=== PATIENT | male | born 1945 | race Hispanic/Latino ===

== ENCOUNTER → 2018-05-24 | Outpatient (CLI) | payer OTHER | END | disposition home or self-care (01) | LOC: SHCH 13:06 | PROVIDERS: ATTEND Internal Medicine Cardiovascular Disease | DX: R01.1 Cardiac murmur, unspecified (principal) | CPT/HCPCS: 93306 ==

== ENCOUNTER → 2018-06-14 | Outpatient (CLI) | payer OTHER ==
[~2018-06-14] MED LIST: IOHEXOL 350 MG/ML 100ML INFUS..BTL IV ONE
== END | disposition home or self-care (01) ==
LOC: RAH 07:15
PROVIDERS: ATTEND Internal Medicine Cardiovascular Disease
DX: N28.1 Cyst of kidney, acquired (principal); K80.20 Calculus of gallbladder without cholecystitis without obstruction; E04.1 Nontoxic single thyroid nodule; N20.0 Calculus of kidney; I70.1 Atherosclerosis of renal artery
CPT/HCPCS: 71275; Q9967

== ENCOUNTER 2018-06-19 13:53 | Emergency (ER) | payer OTHER ==
[2018-06-19 14:41] LABS: BASOPHILS % (AUTO) 0.4 % (0.0-5.0); EOSINOPHILS % (AUTO) 0.3 % (0.0-8.0); HEMATOCRIT 35.6 % (42-54); LYMPHOCYTES % (AUTO) 19.1 % (21.0-51.0); MEAN CORPUSCULAR HEMOGLOBIN 31.7 pg (27.0-33.0); MEAN CORPUSCULAR HGB CONC 34.3 g/dL (32.0-36.0); MEAN CORPUSCULAR VOLUME 92.4 fL (79-99); MONOCYTES % (AUTO) 6.2 % (3.0-13.0); PLATELET COUNT (AUTO) 241 K/uL (130-400); RED BLOOD CELL COUNT(AUTO) 3.85 MIL/uL (4.50-6.20); RED CELL DISTRIBUTION WIDTH 13.7 % (11.0-15.5)
[2018-06-19 15:07] LABS: CREATININE 0.9 mg/dL (0.5-1.5); POTASSIUM 4.9 mmol/L (3.5-5.1)
[2018-06-21] MEDS ORDERED: PANT40TA25 PO (11:45)
[2018-06-21] MEDS ORDERED: PRED5TAB PO (11:45)
[2018-06-21] MEDS ORDERED: METF-446 PO (11:45)
[2018-06-21] MEDS ORDERED: FISH OIL PO (11:45)
[2018-06-21] MEDS ORDERED: CALC-1038 PO (11:45)
[2018-06-21] MEDS ORDERED: ABIRATERONE PO (11:45)
[2018-06-21] MEDS ORDERED: LEUP45SY IM (11:45)
[2018-06-21] MEDS ORDERED: FISH OI PO (11:45)
[2018-06-21] MEDS ORDERED: DONE10TA36 PO (11:45)
[2018-06-21] MEDS ORDERED: DOCU100C33 PO (11:45)
[2018-06-21] MEDS ORDERED: PRAV80TA21 PO (11:45)
[2018-06-21] MEDS ORDERED: SERT50TA12 PO (11:45)
== END 2018-06-19 16:42 | disposition home or self-care (01) ==
LOC: EDH 13:53
DX: K92.1 Melena (principal); I10 Essential (primary) hypertension; E11.9 Type 2 diabetes mellitus without complications; J44.9 Chronic obstructive pulmonary disease, unspecified; E78.5 Hyperlipidemia, unspecified; Z85.46 Personal history of malignant neoplasm of prostate; Z98.890 Other specified postprocedural states
CPT/HCPCS: 36415; 80048; 85025; 86850; 86900; 86901

== ENCOUNTER 2018-06-22 05:30 | Day surgery (SDC) | payer OTHER ==
[~2018-06-22] VITALS: Ht 160 cm; Wt 89.2 kg
[~2018-06-22 05:30] MED LIST changes: +ABIRATERONE PO; +CALC-1038 PO; +DOCU100C33 PO; +DONE10TA36 PO; +FISH OI PO; +FISH OIL PO; -IOHEXOL 350 MG/ML 100ML INFUS..BTL IV ONE; +LEUP45SY IM; +METF-446 PO; +PANT40TA25 PO; +PRAV80TA21 PO; +PRED5TAB PO; +SERT50TA12 PO
[2018-06-22] MEDS ORDERED: SODIUM CHLORIDE 0.9% 1000ML 1,000 ML IV ONE (05:49)
[2018-06-22 06:18] VITALS: BP 143/71
[2018-06-22] MEDS ORDERED: LISI40TA4 PO (06:34)
[2018-06-22] MEDS ORDERED: ABIR500T PO (06:34)
[2018-06-22] MEDS ORDERED: OMEG-148 PO (06:34)
[2018-06-22] MEDS ORDERED: BENZTROPINE PO (06:34)
[2018-06-22] MEDS ORDERED: PROPOFOL 10 MG/ML 20ML VIAL IV ONE (06:35)
[2018-06-22] MEDS ORDERED: SODIUM CHLORIDE 0.9% 10 ML VIAL ONE (06:57)
[2018-06-22] MEDS ORDERED: PHENYLEPHRINE HCL 10 MG/ML 1ML VIAL IV ONE (06:57)
[2018-06-22 07:05] VITALS: BP 117/29
[2018-06-22 07:10] VITALS: BP 109/48
[2018-06-22 07:15] VITALS: BP 110/50
[2018-06-22 07:20] VITALS: BP 131/55
[2018-06-22 07:25] VITALS: BP 132/52
== END 2018-06-22 07:40 | disposition home or self-care (01) ==
LOC: DAH 05:30 → ENDO 05:30
PROVIDERS: ATTEND Internal Medicine Gastroenterology
DX: Z12.11 Encounter for screening for malignant neoplasm of colon (principal); K57.30 Diverticulosis of large intestine without perforation or abscess without bleeding; K64.0 First degree hemorrhoids; K22.8 Other specified diseases of esophagus; K29.50 Unspecified chronic gastritis without bleeding; B96.81 Helicobacter pylori [H. pylori] as the cause of diseases classified elsewhere; K31.89 Other diseases of stomach and duodenum; I10 Essential (primary) hypertension; I25.10 Atherosclerotic heart disease of native coronary artery without angina pectoris; F41.9 Anxiety disorder, unspecified; F32.9 Major depressive disorder, single episode, unspecified; E11.9 Type 2 diabetes mellitus without complications; Z79.899 Other long term (current) drug therapy; E78.2 Mixed hyperlipidemia; Z80.0 Family history of malignant neoplasm of digestive organs
CPT/HCPCS: 43239; 82948 ×2; 88305; 88342; 93005; A4606; G0105; J2370; J2704; J7030; 45378

== ENCOUNTER → 2020-05-22 | Outpatient (CLI) | payer OTHER ==
[~2020-05-22] MED LIST changes: +ABIR500T PO; -ABIRATERONE PO; +BENZTROPINE PO; -FISH OI PO; -FISH OIL PO; +LISI40TA9 PO; +OMEG-148 PO; -PANT40TA25 PO; +PANT40TA54 PO; +SERT-439 PO; -SERT50TA12 PO
== END | disposition home or self-care (01) ==
LOC: SHCH 14:04
PROVIDERS: ATTEND Internal Medicine Cardiovascular Disease
DX: I65.23 Occlusion and stenosis of bilateral carotid arteries (principal); I73.9 Peripheral vascular disease, unspecified
CPT/HCPCS: 93880; 93925